=== PATIENT | male | born 1955 | race Two or more races ===

== ENCOUNTER → 2024-07-07 | Outpatient (CLI) | payer MEDICARE, MEDICAID, SELFPAY ==
--- NOTE | 2024-07-07 10:30 | XR_ITS ---
Examination: Ultrasound abdominal aorta TECHNIQUE: Sonographic grayscale images of the abdominal aorta Exam date and time: July 07, 2024 1003 hours INDICATIONS: Smoking history 25 years FINDINGS: Proximal aorta 2.2 x 2.1 cm, mid aorta 1.7 x 1.9 cm Distal aorta 1.2 x 1.4 cm Right iliac artery 0.9 x 0.8 cm Left iliac artery 0.8 x 5.9 cm IMPRESSION: Negative for abdominal aortic aneurysm
== END | disposition home or self-care (01) ==
PROVIDERS: PCP Family Medicine; Referring Provider Family Medicine; Visit Provider Family Medicine
DX: Z13.6 Encounter for screening for cardiovascular disorders (principal)
CPT/HCPCS: 76770

== ENCOUNTER → 2025-04-11 | Outpatient (CLI) | payer MEDICARE, MEDICAID, SELFPAY ==
--- NOTE | 2025-04-11 16:06 | XR_ITS ---
EXAMINATION: PA lateral chest 2 views TECHNIQUE: Upright PA lateral chest 2 views Date and time: April 11, 2025, 1622 hours, comparison April 21, 2022 INDICATIONS: Positive PPD this month FINDINGS: Normal heart size No pneumonia or pulmonary edema. Moderate osteopenia. IMPRESSION: No active disease No radiographic findings of active tuberculosis
== END | disposition home or self-care (01) ==
PROVIDERS: PCP Family Medicine; Referring Provider Family Medicine; Visit Provider Family Medicine
DX: R76.11 Nonspecific reaction to tuberculin skin test without active tuberculosis (principal)
CPT/HCPCS: 71046